=== PATIENT | female | born 1980 | race Caucasian/White ===

== ENCOUNTER → 2023-08-27 10:24 | Outpatient (BNVA) | payer MEDICARE, MEDICAID, SELFPAY | PROVIDERS: PCP Registered Nurse; Referring Provider Registered Nurse; Visit Provider Specialist | DX: G40.909 Epilepsy, unspecified, not intractable, without status epilepticus (principal); G70.00 Myasthenia gravis without (acute) exacerbation; D49.89 Neoplasm of unspecified behavior of other specified sites; R56.9 Unspecified convulsions; R55 Syncope and collapse; R05.4 Cough syncope; F17.210 Nicotine dependence, cigarettes, uncomplicated; E66.3 Overweight; Z68.42 Body mass index [BMI] 45.0-49.9, adult | CPT/HCPCS: 36415; 83516; 83519; 99205 ==

== ENCOUNTER → 2023-11-02 12:40 | Outpatient (BNVA) | payer MEDICARE, MEDICAID, SELFPAY | PROVIDERS: PCP Registered Nurse; Visit Provider Specialist | DX: R55 Syncope and collapse (principal); R05.4 Cough syncope; R56.9 Unspecified convulsions | CPT/HCPCS: 95819 ==

== ENCOUNTER → 2024-02-25 11:48 | Outpatient (BNVA) | payer MEDICARE, MEDICAID, SELFPAY | PROVIDERS: PCP Registered Nurse; Visit Provider Specialist | DX: G70.00 Myasthenia gravis without (acute) exacerbation (principal); G40.909 Epilepsy, unspecified, not intractable, without status epilepticus; R55 Syncope and collapse; R05.4 Cough syncope | CPT/HCPCS: 36415; 83516; 99214; 99215 ==

== ENCOUNTER → 2024-04-26 12:00 | Outpatient (BNVA) | payer MEDICARE, MEDICAID, SELFPAY | PROVIDERS: PCP Registered Nurse; Visit Provider Specialist | DX: G40.909 Epilepsy, unspecified, not intractable, without status epilepticus (principal); G70.00 Myasthenia gravis without (acute) exacerbation; D49.89 Neoplasm of unspecified behavior of other specified sites; R55 Syncope and collapse; R05.4 Cough syncope | CPT/HCPCS: 99215 ==